=== PATIENT | female | born 1975 | race African-American/Black ===

== ENCOUNTER 2018-10-09 01:45 | Emergency (ER) | payer OTHER ==
[2018-10-09 01:59] VITALS: BP 158/85
[2018-10-09] MEDS ORDERED: ACETAMINOPHEN 325 MG TABLET PO ONE (02:18)
[2018-10-09] MEDS ORDERED: IBUPROFEN 600 MG TABLET PO ONE (02:19)
--- NOTE | 2018-10-09 02:29 | ER Document Report ---
ED General - General Chief Complaint: Arm Injury Stated Complaint: FALL/ARM PAIN Time Seen by Provider: 10/09/18 02:10 Notes: Patient is a 43-year-old female presents with complaint of pain along the right arm. It is most in the distal forearm. She denies any elbow pain. No shoulder pain. Patient says that this occurred after she was walking and tripped over a lip on the sidewalk and fell onto the concrete onto her right arm. No sniffing pain to the hand. No numbness or weakness into the hand. No other complaints at this time. Denies any pain in anywhere other than her distal right forearm. TRAVEL OUTSIDE OF THE [place] IN LAST 30 DAYS: No - Related Data Allergies/Adverse Reactions: iodine [Iodine] Allergy (Verified 12/04/12 13:06) Past Medical History - Social History Smoking Status: Unknown if Ever Smoked Frequency of alcohol use: None Drug Abuse: None Family History: Reviewed & Not Pertinent Review of Systems - Review of Systems Notes: My Normal Review Basic REVIEW OF SYSTEMS: CONSTITUTIONAL : Denies fever, chills, or sweats. Denies recent illness. MUSCULOSKELETAL: Right forearm pain SKIN: Denies rash or skin lesions. HEMATOLOGIC : Denies easy bruising or bleeding. NEUROLOGICAL: Denies sensory or motor loss. ALL OTHER SYSTEMS REVIEWED AND NEGATIVE. Physical Exam - Vital signs Vitals: Temp Pulse Resp BP Pulse Ox 98.9 F 110 H 18 158/85 H 99 10/09/18 01:56 10/09/18 01:56 10/09/18 01:56 10/09/18 01:56 10/09/18 01:56 - Notes Notes: General Appearance: Well nourished, alert, cooperative, no acute distress, moderate obvious discomfort. Vitals: reviewed, See vital signs table. Head: no swelling or tenderness to the head Eyes: PERRL, EOMI, Conjuctiva clear Extremities: strength 5/5 in all extremities, good pulses in all extremities, good distal sensation and cap refill in all fingers of the right hand. She is able move all fingers the right hand without difficulty. No pain to palpation of the hand itself. She has pain to palpation over the proximal wrist and distal forearm. It is in both the radial and ulnar aspects of the forearm. No pain to palpation over the elbow. No pain to palpation over the shoulder. Skin: warm, dry, appropriate color, no rash Neuro: speech clear, oriented x 3, normal affect, responds appropriately to questions. Course - Re-evaluation Re-evalutation: 10/09/18 04:42 Patient has a proximal radius fracture is nondisplaced. Patient placed in a long posterior arm splint. Patient to follow-up closely with the orthopedist. Patient to return to ER immediately if she has worsening pain, numbness or tingling to the hand, or if she has further concerns. Patient agrees with plan will be discharged home. Dictation of this chart was performed using voice recognition software; therefore, there may be some unintended grammatical errors. - Vital Signs Vital signs: Temp Pulse Resp BP Pulse Ox 98.9 F 110 H 18 158/85 H 99 10/09/18 01:56 10/09/18 01:56 10/09/18 01:56 10/09/18 01:56 10/09/18 01:56 Procedures - Immobilization Right Arm Pre-Proc Neuro Vasc Exam: Normal Immobilizer type: Long arm posterior Performed by: Provider Post-Proc Neuro Vasc Exam: Normal - Initial splint was placed by PCT. Splint was uncomfortable for the patient. I therefore removed the fiber glass splint was initially placed and placed a plaster splint and molded it myself. This point was much more comfortable for the patient and I was able to molded to more appropriate positioning. Patient given a sling. Capillary refill and distal sensation after splint placement. Discharge - Discharge Clinical Impression: Radius fracture Qualifiers: Encounter type: initial encounter Radius location: proximal Fracture type: closed Fracture morphology: unspecified fracture morphology Laterality: right Qualified Code(s): S52.101A - Unspecified fracture of upper end of right radius , initial encounter for closed fracture Condition: Good Disposition: HOME, SELF-CARE Additional Instructions: Please follow up with Dr. Bell, orthopedist, for reevaluation. Please return to the ER immediately if you develop have numbness in your hand or severe pain. Your splint has an James wrap around it. Sometimes you can have increased swelling in your arm which will cause a splint to be too tight. Please loosen the James wrap around the splint if you start having any increasing pain or swelling or numbness into your hand. Please return to ER immediately if you continue have these symptoms despite loosening the splint. Referrals: ROB BELL DO [ACTIVE STAFF] - 10/11/18
--- NOTE | 2018-10-09 02:51 | RADIOLOGY REPORT (SQ) ---
EXAM DESCRIPTION: XR FOREARM 2 VIEWS COMPLETED DATE/TME: 10/09/2018 02:18 CLINICAL HISTORY: 43 years, Female, trauma COMPARISON: None. NUMBER OF VIEWS: Two TECHNIQUE: Two views of the right forearm LIMITATIONS: None. FINDINGS: There is a minimally displaced fracture involving the proximal radius. No other fracture is identified. IMPRESSION: Minimally displaced fracture involving the proximal radius. copyright 2010 [employer] All Rights Reserved
--- NOTE | 2018-10-09 03:12 | RADIOLOGY REPORT (SQ) ---
CLINICAL HISTORY: trauma COMPARISON: None. TECHNIQUE: XR WRIST 3 OR MORE VIEWS BILATERAL 10/09/2018 2:18 AM [facility] [employer] [facility] FINDINGS: There is no fracture. Joint spaces are preserved. Soft tissues are unremarkable. IMPRESSION: No acute osseous findings.
== END 2018-10-09 04:50 | disposition home or self-care (01) ==
LOC: ER 01:45
DX: S52.101A Unspecified fracture of upper end of right radius, initial encounter for closed fracture (principal); M79.631 Pain in right forearm; W01.0XXA Fall on same level from slipping, tripping and stumbling without subsequent striking against object, initial encounter
CPT/HCPCS: 99283